=== PATIENT | male | born 1995 | race African-American/Black ===

== ENCOUNTER 2022-10-28 15:05 | Emergency (ER) | payer SELFPAY ==
[~2022-10-28] VITALS: Ht 185.4 cm; Wt 61.2 kg
[2022-10-28 16:46] VITALS: BP 114/78; PULSE 92; RESP 18; TEMP 98.3; O2SAT 98
[2022-10-28] MEDS ORDERED: cefTRIAXone SOD 1,000 MG VL IM ONE (17:00)
[2022-10-28] MEDS ORDERED: AZIT-81 PO (17:08)
[2022-10-28] MEDS ORDERED: IBUP-1454 PO (17:08)
== END 2022-10-28 17:23 | disposition home or self-care (01) ==
LOC: ER 15:05
DX: J03.90 Acute tonsillitis, unspecified (principal)
CPT/HCPCS: 96372; 99283; J0696

== ENCOUNTER 2023-03-21 16:54 | Emergency (ER) | payer SELFPAY ==
[~2023-03-21] VITALS: Ht 185.4 cm; Wt 66.2 kg
[~2023-03-21 16:54] MED LIST: AZIT-81 PO; IBUP-1454 PO
[2023-03-21 18:21] VITALS: BP 139/89; PULSE 106; RESP 18; TEMP 98.2; O2SAT 96
[2023-03-21] MEDS ORDERED: ERY05OO OP (18:51)
[2023-03-21] MEDS ORDERED: FLUORESCEIN SOD OPTH TEST STRIP RIGHTEYE ONE (19:00)
[2023-03-21] MEDS ORDERED: TETRACAINE HCL 0.5% OPTH(EYE) SOLN 4ML RIGHTEYE ONE (19:00)
== END 2023-03-21 19:05 | disposition home or self-care (01) ==
LOC: ER 16:54
DX: S05.01XA Injury of conjunctiva and corneal abrasion without foreign body, right eye, initial encounter (principal); H10.89 Other conjunctivitis; Z79.899 Other long term (current) drug therapy; X58.XXXA Exposure to other specified factors, initial encounter; Y93.89 Activity, other specified; Y92.89 Other specified places as the place of occurrence of the external cause; Y99.8 Other external cause status